=== PATIENT | male | born 1940 | race Caucasian/White ===

== ENCOUNTER 2017-07-27 09:52 | Day surgery (SDC) | payer OTHER ==
[2017-07-27 10:40] VITALS: BMI 20.2
[2017-07-27] MEDS ORDERED: Propofol 10 mg/ml Inj (20 ML) ONE ×4 (11:25→12:17)
[2017-07-27] MEDS ORDERED: Etomidate 20 mg/10ml Inj IV ONE (12:23)
[2017-07-27] MEDS ORDERED: Lactated Ringer's 500 ML IV SCH (13:00)
[2017-07-27 13:16] VITALS: TEMP 98.7
[2017-07-27 14:04] VITALS: BP 122/61; PULSE 63; RESP 19; O2SAT 98
== END 2017-07-27 13:53 | disposition home or self-care (01) ==
LOC: C.ENDO 09:52
PROVIDERS: ATTEND Internal Medicine
DX: R13.10 Dysphagia, unspecified (principal); K22.8 Other specified diseases of esophagus; K29.70 Gastritis, unspecified, without bleeding; E03.9 Hypothyroidism, unspecified; I10 Essential (primary) hypertension; E11.9 Type 2 diabetes mellitus without complications; R63.4 Abnormal weight loss; Z95.1 Presence of aortocoronary bypass graft; Z79.899 Other long term (current) drug therapy
CPT/HCPCS: 43239; 82948; 88305; J2001; J2704; J7120